=== PATIENT | male | born 2000 | race Caucasian/White ===

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

== ENCOUNTER 2020-08-12 18:49 | Emergency (ER) | payer OTHER ==
[~2020-08-12 18:49] MED LIST changes: +CEPHALEXIN500 M1 PO; +Motrin,Rufen800 MG PO; +SEPTDS PO
== END 2020-08-12 19:57 | disposition home or self-care (01) ==
LOC: ED 18:49
DX: K52.9 Noninfective gastroenteritis and colitis, unspecified (principal); Z79.899 Other long term (current) drug therapy

== ENCOUNTER 2022-01-19 22:50 | Emergency (ER) | payer OTHER ==
[~2022-01-19] VITALS: Ht 177.8 cm; Wt 117.9 kg
[2022-01-20] MEDS ORDERED: AUGMENTIN 875-875 MG PO (00:47)
== END 2022-01-20 01:02 | disposition home or self-care (01) ==
LOC: ED 22:50
DX: H66.92 Otitis media, unspecified, left ear (principal)

== ENCOUNTER 2025-01-05 18:03 | Emergency (ER) | payer OTHER ==
[2025-01-05] MEDS ORDERED: Acetaminophen/Oxycodone 5 MG/325 MG TABLET PO ONE (18:20)
[2025-01-05] MEDS ORDERED: Ondansetron Hydrochloride 4 MG/2 ML VIAL IV ONE (18:35)
[2025-01-05] MEDS ORDERED: fentaNYL CITRATE/PF 50 MCG/ML SYRINGE IV ONE (18:35)
== END 2025-01-05 19:32 | disposition short-term general hospital (02) ==
LOC: ED 18:03
DX: N50.811 Right testicular pain (principal); N50.812 Left testicular pain; R10.30 Lower abdominal pain, unspecified; Z96.22 Myringotomy tube(s) status; W55.19XA Other contact with horse, initial encounter; Y93.89 Activity, other specified; Y92.89 Other specified places as the place of occurrence of the external cause; Y99.8 Other external cause status